=== PATIENT | female | born 1965 | race Caucasian/White ===

== ENCOUNTER → 2017-10-15 | Day surgery (SDC) | payer OTHER ==
[~2017-10-15] VITALS: Ht 162.6 cm; Wt 64.5 kg
[~2017-10-15] MED LIST: ABL/15 PO; ACET-1311 PO; AMLO-110 PO; ASPI81TA28 PO; CARB200T PO; CHOL1000 PO; DEXTROSE 5% IV SCH; FLUO20CA35 PO; MAG SULFATE IV SCH; MOUTLIQ80 PO; OMEP20CA59 PO; PATIENT'S ALLERGY INFO NEEDS ENTERED SCH; PRED10TA PO; QUET1TAB34 PO; SIMV20TA2 PO; SLWMEC PO; TACR1CAP PO; [UNRECOGNIZED DRUG - CODE] IV; [UNRECOGNIZED DRUG - CODE] PO
[2017-10-15 10:58] VITALS: BP 177/82; PULSE 92; TEMP 36.5; O2SAT 97; Ht 162.6 cm; Wt 64.5 kg
[2017-10-15] MEDS: MAGNESIUM SULFATE 1GM / D5W 1 GM in PREMIXED IN D5W 100 ML IV SCH ×2 (11:17→12:15)
[2017-10-15 11:49] VITALS: BP 171/82
== END | disposition home or self-care (01) ==
LOC: C.MTU 10:40
PROVIDERS: ATTEND Internal Medicine Nephrology
DX: E83.42 Hypomagnesemia (principal)